=== PATIENT | male | born 1990 | race African-American/Black ===

== ENCOUNTER 2019-10-05 10:27 | Outpatient (RCR) | payer OTHER, SELFPAY ==
[2019-07-20 15:13] LABS: INR 2.5; Prothrombin Time 26.9 Seconds (11.1-14.7)
[2019-08-20 12:57] LABS: INR 2.3; Prothrombin Time 24.4 Seconds (11.1-14.7)
[2019-09-05 12:25] LABS: INR 2.6; Prothrombin Time 27.5 Seconds (11.1-14.7)
[2019-10-05 11:00] LABS: Prothrombin Time 22.5 Seconds (11.1-14.7)
== END 2019-10-18 23:59 | disposition home or self-care (01) ==
LOC: ANHLAB 10:27
PROVIDERS: Visit Provider Internal Medicine Cardiovascular Disease
DX: Z95.2 Presence of prosthetic heart valve (principal); Z86.79 Personal history of other diseases of the circulatory system
CPT/HCPCS: 36415; 85610

== ENCOUNTER 2019-12-28 12:50 | Outpatient (RCR) | payer OTHER, SELFPAY ==
[2019-10-23 14:33] LABS: INR 3.9; Prothrombin Time 37.5 Seconds (11.1-14.7)
[2019-11-02 10:17] LABS: INR 3.1; Prothrombin Time 31.2 Seconds (11.1-14.7)
[2019-11-26 10:51] LABS: INR 2.8; Prothrombin Time 28.7 Seconds (11.1-14.7)
[2019-12-28 13:32] LABS: INR 3.3; Prothrombin Time 33.3 Seconds (11.1-14.7)
== END 2020-01-21 23:59 | disposition home or self-care (01) ==
LOC: ANHLAB 12:50
PROVIDERS: Visit Provider Internal Medicine Cardiovascular Disease
DX: Z51.81 Encounter for therapeutic drug level monitoring (principal); Z95.2 Presence of prosthetic heart valve; Z86.79 Personal history of other diseases of the circulatory system; Z79.01 Long term (current) use of anticoagulants
CPT/HCPCS: 36415; 85610

== ENCOUNTER 2020-04-10 12:43 | Outpatient (RCR) | payer OTHER, SELFPAY ==
[2020-01-28 18:56] LABS: INR 2.9; Prothrombin Time 29.4 Seconds (11.1-14.7)
[2020-02-26 13:16] LABS: INR 3.1; Prothrombin Time 31.7 Seconds (11.1-14.7)
[2020-03-27 12:36] LABS: INR 3.9; Prothrombin Time 37.7 Seconds (11.1-14.7)
[2020-04-10 13:12] LABS: INR 3.4; Prothrombin Time 33.9 Seconds (11.1-14.7)
== END 2020-04-27 23:59 | disposition home or self-care (01) ==
LOC: ANHLAB 12:43
PROVIDERS: Visit Provider Internal Medicine Cardiovascular Disease
DX: Z51.81 Encounter for therapeutic drug level monitoring (principal); Z95.2 Presence of prosthetic heart valve; Z86.79 Personal history of other diseases of the circulatory system; Z79.01 Long term (current) use of anticoagulants
CPT/HCPCS: 36415; 85610

== ENCOUNTER 2020-08-05 10:32 | Outpatient (RCR) | payer OTHER, SELFPAY ==
[2020-05-12 11:59] LABS: Prothrombin Time 38.1 Seconds (11.1-14.7)
[2020-05-27 11:16] LABS: INR 3.3; Prothrombin Time 33.3 Seconds (11.1-14.7)
[2020-06-10 09:29] LABS: INR 3.3; Prothrombin Time 32.8 Seconds (11.1-14.7)
[2020-07-08 10:40] LABS: INR 2.6
[2020-08-05 11:41] LABS: INR 1.9; Prothrombin Time 22.7 Seconds (11.1-14.7)
== END 2020-08-10 23:59 | disposition home or self-care (01) ==
LOC: ANHLAB 10:32
PROVIDERS: Visit Provider Internal Medicine Cardiovascular Disease
DX: Z51.81 Encounter for therapeutic drug level monitoring (principal); Z95.2 Presence of prosthetic heart valve; Z86.79 Personal history of other diseases of the circulatory system; Z79.01 Long term (current) use of anticoagulants
CPT/HCPCS: 36415; 85610

== ENCOUNTER 2020-09-29 09:39 | Outpatient (RCR) | payer OTHER, SELFPAY ==
[2020-08-18 09:21] LABS: INR 2.6; Prothrombin Time 28.7 Seconds (11.1-14.7)
[2020-09-15 10:50] LABS: Prothrombin Time 39.7 Seconds (11.1-14.7)
[2020-09-29 10:31] LABS: INR 2.5; Prothrombin Time 27.4 Seconds (11.1-14.7)
== END 2020-11-16 23:59 | disposition home or self-care (01) ==
LOC: ANHLAB 09:39
PROVIDERS: Visit Provider Internal Medicine Cardiovascular Disease
DX: Z51.81 Encounter for therapeutic drug level monitoring (principal); Z79.01 Long term (current) use of anticoagulants
CPT/HCPCS: 36415; 85610